=== PATIENT | female | born 1955 | race Caucasian/White ===

== ENCOUNTER 2021-08-21 12:05 | Emergency (ER) | payer MEDICARE, OTHER ==
[~2021-08-21] VITALS: Ht 165.1 cm; Wt 59.0 kg
[~2021-08-21 12:05] MED LIST: ALBU8HFA4 INH; ALPR0.255 PO; CALC-555 PO; DOCU-141 PO; FLUT16SP2 BNOSTRILS; HYDR-3326 PO; LORA10TA7 PO; MOME13HF IH; NAPR-1192 PO; OMEP20CA15 PO; POLY17PO4 PO; PROM25TA15 PO; PROP40TA7 PO; SUMA100T PO; TIOT18CA3 IH; TOPI25TA PO; TOPI50TA PO; [UNRECOGNIZED DRUG - CODE] PO
[2021-08-21] MEDS ORDERED: TOLT2CAP PO (12:32)
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
[2021-08-21] MEDS ORDERED: CEFTRIAXONE 500 MG VIAL IM ONE (13:00)
[2021-08-21] MEDS ORDERED: LIDOCAINE HCL 1% 20 ML VIAL IJ ONE (13:00)
[2021-08-21] MEDS ORDERED: AZITHROMYCIN 250 MG TABLET PO ONE (13:00)
[2021-08-21] MEDS ORDERED: CEFTRIAXONE 1 G VIAL ONE (13:25)
[2021-08-21] MEDS ORDERED: LIDOCAINE HCL 1% 20 ML VIAL ONE (13:25)
[2021-08-21] MEDS ORDERED: AZITHROMYCIN 250 MG TABLET ONE (13:25)
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
[2021-08-21] MEDS ORDERED: NAPR-1009 PO ×2 (14:47→14:51)
[2021-08-21] MEDS ORDERED: FLUC200T8 PO (14:47)
--- NOTE | 2021-08-21 15:36 | NUR ---
PT WAS D/C'd TO HOME. D/C INSTRUCTIONS GIVEN TO THE PT BY DR MEJIA.
[2021-08-21 15:37] VITALS: BP 135/76
== END 2021-08-21 15:37 | disposition home or self-care (01) ==
LOC: ER 12:12
DX: M79.642 Pain in left hand (principal); Z59.02 Unsheltered homelessness; T76.21XA Adult sexual abuse, suspected, initial encounter; K21.9 Gastro-esophageal reflux disease without esophagitis; J44.9 Chronic obstructive pulmonary disease, unspecified; N32.81 Overactive bladder; G89.29 Other chronic pain; Z79.899 Other long term (current) drug therapy
CPT/HCPCS: 36415; 73130; 86592; 87806; 96372; 99284; J0696; J3490; 87491; A4663; Q0144